=== PATIENT | female | born 1990 | race Caucasian/White ===

== ENCOUNTER 2016-12-21 23:57 | Emergency (ER) | payer SELFPAY ==
[~2016-12-21] VITALS: Ht 162.6 cm; Wt 72.6 kg
[2016-12-22 00:05] VITALS: BP 132/76
[2016-12-22 00:43] LABS: APPEARANCE,URINE CLEAR; KETONES,URINE NEGATIVE (NEGATIVE); LEUKOCYTE ESTERASE ,URINE 1+ (NEGATIVE); NITRITE,URINE NEGATIVE (NEGATIVE); PH,URINE 7 (4.5-8.0); PROTEIN,URINE NEGATIVE (NEGATIVE); UROBILINOGEN,URINE NORMAL MG/DL (0.0-1.0)
[2016-12-22 01:05] LABS: BACTERIA,URINE FEW /HPF; RBC,URINE 0-2 /HPF (0 - 2); SQUAMOUS EPITHELIAL CELL,UR FEW /LPF (NONE/OCC); WBC,URINE 0-2 /HPF (0 - 2)
[2016-12-22] MEDS ORDERED: ATIVAN0.5 MG ORAL (01:19)
[2016-12-22 01:30] VITALS: BP 121/70
--- NOTE | 2016-12-22 02:28 | Emergency Room Report ---
History of Present Illness General Chief Complaint: General Complaint Source: Patient Present Illness HPI This is a 26-year-old female who presented for increased anxiety. Patient gradual onset of symptoms after having several cups of coffee. Patient reported having increased hand numbness. The patient associated with numbness. She reported having some palpitations. And generalized nervousness. She denied any lightheadedness or feeling of passing out Patient History Past Medical History: see triage record Reviewed Nursing Documentation: PMH: Agreed, PSxH: Agreed Nursing Documentation-PMH Past Medical History: No Stated History Review of Systems All Other Systems: negative except mentioned in HPI Physical Exam Vital Signs Date Time Temp Pulse Resp B/P Pulse Ox O2 Delivery O2 Flow Rate FiO2 12/21/16 23:57 97.5 82 16 132/76 98 Room Air General Appearance: well appearing, no apparent distress, alert, GCS 15 Head: normocephalic, atraumatic ENT: hearing grossly normal, normal voice Neck: full range of motion, supple Respiratory: lungs clear, normal breath sounds, no respiratory distress, speaking full sentences Cardiovascular #1: normal peripheral pulses, regular rate, rhythm, no edema Gastrointestinal: normal bowel sounds, soft, no mass Musculoskeletal: normal inspection, gait/station normal, no calf tenderness Neurologic: normal inspection, alert, oriented x3, responsive, county surveyor III-XII nml as tested, motor strength/tone normal, normal gait Psychiatric: normal inspection, judgement/insight normal, mood/affect normal Skin: no rash Medical Decision Making Diagnostic Impression: Primary Impression: Anxiety Additional Impression: Accidental caffeine overdose ER Course Patient presented for palpitations. The differential diagnosis included was not limited to arrhythmia, thyroid storm, sepsis, anemia, myocardial infarction , alcohol withdrawal, stimulant abuse, caffeine overdose among others. The patient's history consistent with a caffeine overdose. The patient is advised to avoid excess caffeine. The patient given prescription for Ativan for possible anxiety.The patient is advised to follow up with primary care doctor the next few days. Patient is advised to return if any worsening condition or if any changes in status that are concerning. Labs Test 12/22/16 00:00 Urine Color Pale yellow Urine Appearance Clear Urine pH 7 (4.5-8.0) Urine Specific [place] 1.005 (1.005-1.035) Urine Protein Negative (NEGATIVE) Urine Glucose (UA) Negative (NEGATIVE) Urine Ketones Negative (NEGATIVE) Urine Occult Blood 1+ (NEGATIVE) Urine Nitrite Negative (NEGATIVE) Urine Bilirubin Negative (NEGATIVE) Urine Urobilinogen Normal MG/DL (0.0-1.0) Urine Leukocyte Esterase 1+ (NEGATIVE) Urine RBC 0-2 /HPF (0 - 2) Urine WBC 0-2 /HPF (0 - 2) Urine Squamous Epithelial Cells Few /LPF (NONE/OCC) Urine Bacteria Few /HPF (NONE) Urine HCG, Qualitative Negative Urine Opiates Screen Negative (NEGATIVE) Urine Barbiturates Screen Negative (NEGATIVE) Phencyclidine (PCP) Screen Negative (NEGATIVE) Urine Amphetamines Screen Negative (NEGATIVE) Urine Benzodiazepines Screen Negative (NEGATIVE) Urine Cocaine Screen Negative (NEGATIVE) Urine Marijuana (THC) Screen Negative (NEGATIVE) EKG Diagnostic Results Rate: normal Rhythm: NSR ST Segments: no acute changes Last Vital Signs Date Time Temp Pulse Resp B/P Pulse Ox O2 Delivery O2 Flow Rate FiO2 12/22/16 01:30 97.9 91 18 121/70 100 Room Air Status: improved Disposition: HOME, SELF-CARE Condition: Stable Scripts Lorazepam* (ATIVAN*) 0.5 Mg Tablet 0.5 MG ORAL QHS, #10 TAB Prov: Nigel Castellano 12/22/16 Patient Instructions: Palpitations Nigel Castellano Dec 22, 2016 02:28
--- NOTE | 2016-12-23 08:18 | Cardiology Report ---
APPROVED REPORT EKG Measurement Heart [id number] Normal sinus rhythm with sinus arrhythmia Normal ECG
== END 2016-12-22 01:30 | disposition home or self-care (01) ==
LOC: EDBD 23:57 → EMR 12-22 00:54
DX: R41.9 Unspecified symptoms and signs involving cognitive functions and awareness (principal); T43.611A Poisoning by caffeine, accidental (unintentional), initial encounter; Y92.9 Unspecified place or not applicable; R20.0 Anesthesia of skin
CPT/HCPCS: 80300; 81003; 81025; 93005; 99283